=== PATIENT | female | born 1975 | race Hispanic/Latino ===

== ENCOUNTER 2017-12-09 18:21 | Emergency (ER) | payer OTHER ==
[2017-12-09 19:37] LABS: APPEARANCE,URINE Clear (CLEAR); BILIRUBIN,URINE Negative (NEGATIVE); COLOR,URINE Yellow (YELLOW); GLUCOSE, URINE (UA) Negative (NEGATIVE); KETONES,URINE Negative (NEGATIVE); LEUKOCYTE ESTERASE ,URINE Moderate (NEGATIVE); NITRATE,URINE Negative (NEGATIVE); OCCULT BLOOD,URINE Negative (NEGATIVE); PH,URINE 6.5 (5.0-8.0); PROTEIN,URINE Negative (NEGATIVE)
[2017-12-09 19:39] LABS: HCG,QUAL RESULT NEGATIVE (NEGATIVE)
[2017-12-09 19:52] LABS: BACTERIA,URINE Rare /HPF (None Seen); MUCUS,URINE Rare LPF (None Seen); RBC,URINE None Seen /HPF (0-1)
[2017-12-09] MEDS ORDERED: DEXAMETHASONE SOD PHOSPHATE 10MG/ML 1ML VIAL ONE (20:03)
[2017-12-09] MEDS ORDERED: ACETAMINOPHEN 325 MG TAB ONE (20:04)
== END 2017-12-09 20:50 | disposition home or self-care (01) ==
LOC: EDH 18:21
DX: J01.10 Acute frontal sinusitis, unspecified (principal); N39.0 Urinary tract infection, site not specified; Z88.8 Allergy status to other drugs, medicaments and biological substances
CPT/HCPCS: 81001; 81025; 96372; 99284; J1100

== ENCOUNTER 2018-09-08 22:30 | Emergency (ER) | payer OTHER ==
[2018-09-08] MEDS ORDERED: ORPHENADRINE CITRATE 30 MG/ML ML ONE (23:16)
[2018-09-08] MEDS ORDERED: LIDOCAINE 5% TOPICAL PATCH TP ONE (23:17)
[2018-09-08] MEDS ORDERED: KETOROLAC TROMETHAMINE 60 MG/2 ML VIAL ONE (23:17)
== END 2018-09-08 23:42 | disposition home or self-care (01) ==
LOC: EDH 22:30
DX: R51 Headache (principal); M62.830 Muscle spasm of back; M54.6 Pain in thoracic spine; M54.2 Cervicalgia; F41.9 Anxiety disorder, unspecified; Z88.6 Allergy status to analgesic agent; Z90.49 Acquired absence of other specified parts of digestive tract; Z88.8 Allergy status to other drugs, medicaments and biological substances
CPT/HCPCS: 96372 ×2; 99284; J1885; J2360

== ENCOUNTER 2019-10-24 10:43 | Emergency (ER) | payer OTHER ==
[2019-10-24] MEDS ORDERED: PREDNISONE 20 MG TABLET ONE (13:17)
[2019-10-24] MEDS ORDERED: KETOROLAC TROMETHAMINE 60 MG/2 ML VIAL ONE (13:18)
[2019-10-24] MEDS ORDERED: CYCLOBENZAPRINE HCL 10 MG TABLET ONE (13:18)
== END 2019-10-24 14:28 | disposition home or self-care (01) ==
LOC: EDH 10:43
DX: M54.32 Sciatica, left side (principal); R20.2 Paresthesia of skin; F41.9 Anxiety disorder, unspecified; Z88.8 Allergy status to other drugs, medicaments and biological substances; Z88.6 Allergy status to analgesic agent
CPT/HCPCS: 96372; 99283; J1885

== ENCOUNTER 2020-05-21 12:20 | Emergency (ER) | payer SELFPAY ==
[2020-05-21] MEDS ORDERED: HYDROCODONE/ACETAMINOPHEN 5/325 MG TAB ONE (13:03)
[2020-05-21] MEDS ORDERED: KETOROLAC 30MG VIAL (30MG/ML) ONE (13:03)
== END 2020-05-21 14:23 | disposition home or self-care (01) ==
LOC: EDH 12:20
DX: S83.91XA Sprain of unspecified site of right knee, initial encounter (principal); F41.9 Anxiety disorder, unspecified; F32.9 Major depressive disorder, single episode, unspecified; Z88.6 Allergy status to analgesic agent; Z88.8 Allergy status to other drugs, medicaments and biological substances; Z90.49 Acquired absence of other specified parts of digestive tract; X50.1XXA Overexertion from prolonged static or awkward postures, initial encounter; Y93.89 Activity, other specified; Y92.830 Public park as the place of occurrence of the external cause; Y99.8 Other external cause status
CPT/HCPCS: 29505; 73562; 96372; 99283; J1885

== ENCOUNTER 2021-11-11 00:16 | Emergency (ER) | payer OTHER ==
[~2021-11-11] VITALS: Ht 165.1 cm; Wt 86.2 kg
[2021-11-11 00:40] VITALS: BP 137/86
[2021-11-11 00:45] LABS: BASOPHILS % (AUTO) 0.8 % (0.0-5.0); EOSINOPHILS % (AUTO) 1.9 % (0.0-8.0); HEMATOCRIT 41.3 % (36-48); LYMPHOCYTES % (AUTO) 33.3 % (21.0-51.0); MEAN CORPUSCULAR HEMOGLOBIN 28.1 pg (27.0-33.0); MEAN CORPUSCULAR HGB CONC 33.7 g/dL (32.0-36.0); MEAN CORPUSCULAR VOLUME 83.6 fL (79-99); NEUTROPHILS % (AUTO) 55.9 % (40.0-77.0); PLATELET COUNT (AUTO) 337 K/uL (130-400); RED BLOOD CELL COUNT(AUTO) 4.94 MIL/uL (4.00-5.50); RED CELL DISTRIBUTION WIDTH 13.2 % (11.0-15.5); WHITE BLOOD COUNT (AUTO) 7.8 K/uL (4.8-10.8)
[2021-11-11 00:49] LABS: APPEARANCE,URINE CLEAR (CLEAR); BILIRUBIN,URINE NEGATIVE (NEGATIVE); COLOR,URINE COLORLESS (YELLOW); GLUCOSE, URINE (UA) NEGATIVE (NEGATIVE); KETONES,URINE NEGATIVE (NEGATIVE); LEUKOCYTE ESTERASE ,URINE 75 Leu/uL (NEGATIVE); NITRATE,URINE NEGATIVE (NEGATIVE); OCCULT BLOOD,URINE NEGATIVE (NEGATIVE); PROTEIN,URINE NEGATIVE (NEGATIVE); UROBILINOGEN,URINE 0.2 mg/dL (0.2-1.0)
[2021-11-11 00:52] LABS: CREATININE 0.8 mg/dL (0.5-1.5); POTASSIUM 3.9 mmol/L (3.5-5.1)
[2021-11-11 00:54] LABS: BACTERIA,URINE RARE /HPF (None Seen); MUCUS,URINE RARE LPF (None Seen); SQUAMOUS EPITHELIAL CELL,UR RARE /HPF (0-2)
[2021-11-11] MEDS ORDERED: 0.9%NACL 1000ML 1,000 ML IV ONE (01:00)
[2021-11-11] MEDS ORDERED: FAMOTIDINE 20MG VIAL IV ONE (01:00)
[2021-11-11] MEDS ORDERED: ONDANSETRON 4MG INJ IVP ONE (01:00)
[2021-11-11 01:01] LABS: ALBUMIN 4.4 g/dL (3.5-5.0); TOTAL PROTEIN, SERUM 8.6 g/dL (6.0-8.3)
[2021-11-11] MEDS ORDERED: FAMO-136 PO (02:34)
== END 2021-11-11 02:49 | disposition home or self-care (01) ==
LOC: EDH 00:16
DX: K21.00 Gastro-esophageal reflux disease with esophagitis, without bleeding (principal); R07.89 Other chest pain; Z88.5 Allergy status to narcotic agent; Z90.49 Acquired absence of other specified parts of digestive tract
CPT/HCPCS: 99284; 96374; 96361; 96375; 84484; 80053; 83690; 85025; 87088; 81001; 81025; 36415; 93005; J3490; J7030; J2405

== ENCOUNTER 2022-08-16 22:19 | Emergency (ER) | payer OTHER ==
[~2022-08-16] VITALS: Ht 165.1 cm; Wt 84.8 kg
[~2022-08-16 22:19] MED LIST: FAMO-136 PO
[2022-08-16 22:50] LABS: BASOPHILS % (AUTO) 0.5 % (0.0-5.0); EOSINOPHILS % (AUTO) 1.2 % (0.0-8.0); HEMATOCRIT 39.7 % (36-48); LYMPHOCYTES % (AUTO) 24.8 % (21.0-51.0); MEAN CORPUSCULAR HEMOGLOBIN 26.8 pg (27.0-33.0); MEAN CORPUSCULAR HGB CONC 32.7 g/dL (32.0-36.0); MEAN CORPUSCULAR VOLUME 81.9 fL (79-99); MONOCYTES % (AUTO) 6.1 % (3.0-13.0); NEUTROPHILS % (AUTO) 67.2 % (40.0-77.0); PLATELET COUNT (AUTO) 389 K/uL (130-400); RED BLOOD CELL COUNT(AUTO) 4.85 MIL/uL (4.00-5.50); RED CELL DISTRIBUTION WIDTH 13.3 % (11.0-15.5)
[2022-08-16 22:57] LABS: APPEARANCE,URINE CLEAR (CLEAR); BILIRUBIN,URINE NEGATIVE (NEGATIVE); COLOR,URINE LIGHT-YELLOW (YELLOW); GLUCOSE, URINE (UA) NEGATIVE (NEGATIVE); KETONES,URINE NEGATIVE (NEGATIVE); LEUKOCYTE ESTERASE ,URINE 500 Leu/uL (NEGATIVE); NITRATE,URINE NEGATIVE (NEGATIVE); OCCULT BLOOD,URINE NEGATIVE (NEGATIVE); PROTEIN,URINE NEGATIVE (NEGATIVE); UROBILINOGEN,URINE 0.2 mg/dL (0.2-1.0)
[2022-08-16 23:05] LABS: CREATININE 0.7 mg/dL (0.5-1.5); POTASSIUM 3.9 mmol/L (3.5-5.1)
[2022-08-16 23:06] LABS: BACTERIA,URINE RARE /HPF (None Seen); MUCUS,URINE RARE LPF (None Seen); SQUAMOUS EPITHELIAL CELL,UR RARE /HPF (0-2)
[2022-08-16 23:09] LABS: ALBUMIN 3.8 g/dL (3.5-5.0); MAGNESIUM 1.8 mg/dL (1.80-2.40); TOTAL PROTEIN, SERUM 7.7 g/dL (6.0-8.3)
[2022-08-17] MEDS ORDERED: CEPHALEXIN 500 MG CAPSULE PO ONE (02:30)
[2022-08-17] MEDS ORDERED: HYDROXYZINE 25 MG TABLET PO ONE (02:30)
[2022-08-17] MEDS ORDERED: CEPH500B PO (02:35)
[2022-08-17] MEDS ORDERED: HYDR50CA50 PO (02:35)
[2022-08-17 02:43] VITALS: BP 121/60
== END 2022-08-17 02:58 | disposition home or self-care (01) ==
LOC: EDH 22:19
DX: N39.0 Urinary tract infection, site not specified (principal); F41.9 Anxiety disorder, unspecified; M62.830 Muscle spasm of back; F32.A Depression, unspecified; Z90.49 Acquired absence of other specified parts of digestive tract; Z98.890 Other specified postprocedural states; Z88.5 Allergy status to narcotic agent; Z88.8 Allergy status to other drugs, medicaments and biological substances
CPT/HCPCS: 36415; 70450; 71045; 80053; 81001; 83605; 83735; 84484; 85025; 87088; 93005

== ENCOUNTER 2024-01-11 16:44 | Emergency (ER) | payer SELFPAY ==
[~2024-01-11 16:44] MED LIST changes: +CEPH500B PO; +HYDR50CA50 PO
--- NOTE | 2024-01-11 16:55 | EKG ---
[facility] Test Date: 2024-01-11 Test Time: 16:51:38 Pat Name: SIOBHAN GONZALEZ Department: ED Room: Gender: F Respiratory Services Manager: 08 : 1975 Requested By: AG LLANES Order Number: [id number] Reading MD: Christen Herring Measurements Intervals [place] Rate: 74 P: 6 LA: 127 QRS: 9 QRSD: 89 T: 33 QT: 365 QTc: 404 Interpretive Statements Sinus rhythm Compared to ECG 08/16/2022 22:25:30 Myocardial infarct finding no longer present Electronically Signed On 01-12-2024 17:25:20 VP SITE by Christen Herring Please click the below link to view image of tracing.
[2024-01-11 17:17] LABS: BASOPHILS # (AUTO) 0.06 K/uL (0.00-0.20); BASOPHILS % (AUTO) 0.6 % (0.0-5.0); EOSINOPHILS # (AUTO) 0.08 K/uL (0.00-0.70); EOSINOPHILS % (AUTO) 0.8 % (0.0-8.0); HEMATOCRIT 40.3 % (36-48); IMMATURE GRANULOCYTE ABSOLUTE 0.04 K/uL (0-1); LYMPHOCYTES # (AUTO) 2.7 K/uL (1.0-4.8); LYMPHOCYTES % (AUTO) 26.9 % (21.0-51.0); MEAN CORPUSCULAR HEMOGLOBIN 25.2 pg (27.0-33.0); MEAN CORPUSCULAR VOLUME 78.7 fL (79-99); MONOCYTES # (AUTO) 0.7 K/uL (0.1-1.0); NEUTROPHILS # (AUTO) 6.5 K/uL (1.8-7.7); NEUTROPHILS % (AUTO) 64.3 % (40.0-77.0); PLATELET COUNT (AUTO) 409 K/uL (130-400); RED BLOOD CELL COUNT(AUTO) 5.12 MIL/uL (4.00-5.50); RED CELL DISTRIBUTION WIDTH 14.6 % (11.0-15.5); WHITE BLOOD COUNT (AUTO) 10.1 K/uL (4.8-10.8)
--- NOTE | 2024-01-11 17:28 | HMCIMG ---
CHEST 1VW HISTORY: Chest pain COMPARISON: 08/17/2022 FINDINGS: A frontal projection of the chest was obtained. Prominent interstitial markings are seen with possible superimposed infiltrates. The heart is borderline enlarged. Degenerative changes are seen. No evidence of aortic calcification is seen. IMPRESSION: 1. Prominent interstitial markings are seen with possible superimposed infiltrates.
[2024-01-11 17:31] LABS: CREATININE 0.7 mg/dL (0.5-1.0); POTASSIUM 4.1 mmol/L (3.5-5.1)
[2024-01-11] MEDS: MAG/ALUM/SIMETH 30 ML UDCUP PO ONE (17:36)
[2024-01-11] MEDS: DICYCLOMINE HCL 10 MG/5 ML ML PO ONE (17:36)
[2024-01-11] MEDS: ASPIRIN 325MG TAB PO ONE (17:36)
[2024-01-11] MEDS: LIDOCAINE HCL 2% VISCOUS 15 ML UDCUP PO ONE (17:36)
[2024-01-11 17:45] LABS: B-TYPE NATRIURETIC PEPTIDE 17 pg/mL (0-100)
[2024-01-11] MEDS: ondanSETRON 4MG INJ IVP ONE (17:49)
[2024-01-11 18:28] LABS: ALANINE AMINOTRANSFERASE 30 U/L (12-78); ASPARTATE AMINOTRANSFERASE 13 U/L (10-37); BILIRUBIN,DIRECT < 0.1 mg/dL (0.0-0.3); BILIRUBIN,TOTAL 0.2 mg/dL (0.2-1.0); TOTAL PROTEIN, SERUM 8.2 g/dL (6.0-8.3)
--- NOTE | 2024-01-11 19:01 | ERN ---
ED Note History of Present Illness Stated Complaint: CHEST PAIN Chief Complaint: Chest Pain Time Seen by MD: 17:04 Time Seen by Midlevel: 17:04 Dictation: The patient is a 48-year-old female with a history of cholecystectomy, tubal ligation who presents to the emergency department with complaints of midsternal chest pain onset yesterday. Patient reports pain sensation as burning associated with nausea. Reports pain to be constant. Denies any fevers, vomiting diarrhea. Allergies: Coded Allergies: morphine (Unverified Allergy, Unknown, 09/08/18) rabeprazole (Unverified Allergy, Unknown, 09/08/18) Home Meds Active Scripts Cephalexin Monohydrate (Keflex) 500 Mg Cap, 500 MG PO QID for 7 Days, #28 CAP Prov:SO KRAMER Sr., MD 08/17/22 Hydroxyzine Pamoate (Hydroxyzine Pamoate) 50 Mg Capsule, 50 MG PO QIDP PRN for ANXIETY/AGITATION, #30 CAP 2 Refills Prov:SO KRAMER Sr., MD 08/17/22 Famotidine (Pepcid) 20 Mg Tablet, 20 MG PO DAILY, #30 TAB 0 Refills Prov:TONI JOEL MD 11/11/21 Past Medical History Past Medical History: Anxiety, Depression Surgical History: Cholecystectomy, Other, BTL Surgical History Other: EYE SX Social History: Other RN Note Reviewed/Agreed w/PFSH: Yes Review of System Dictation Constitutional: Negative for fever,chills, and weight loss Eyes: Negative for injury, pain,redness, and discharge ENT: Negative for injury,pain or swelling Cardiovascular: Negative for palpitations, and edema positive for chest pain Respiratory: Negative for shortness of breath, cough, and wheezing, Abdomen/GI: Negative for abdominal pain, nausea, vomiting, diarrhea, and constipation Back: Negative for injury and pain : Negative for injury, bleeding and discharge MS/Extremity: Negative for injury and deformity Skin: Negative for rash, and discoloration Neuro: Negative for headache, weakness, numbness, tingling, and seizure Psych: Negative for suicide ideation, homicidal ideation, and hallucinations Initial Vital Sign VS Vital Signs Date Time Temp Pulse Resp B/P (MAP) Pulse Ox O2 Delivery O2 Flow Rate FiO2 01/11/24 20:30 97.9 61 18 140/95 100 Room Air* 0 21 Physical Exam Dictation Vital Signs reviewed General Appearance: Alert, oriented x 3, no acute distress, well developed, nourished. Head and Face: non-traumatic. Eyes: PERRL, pink conjunctivas, eyelid no trauma, anterior chamber with arcus senilis. Ears: Pinnas intact and no signs of trauma or erythema ear canals clear and no discharge TM no erythema Nose: No discharge, no bleeding. Oropharynx: Mouth normal, tongue pink. pharynx clear,no erythema, tonsils no exudates, no abscesses noted, mucous membrane moist Neck: Supple, non-tender, no thyromegaly, no masses, no JVD, no bruits Breast:Deferred Chest:No tenderness, no crepitus, no paradoxical movement, no retractions Lungs:Clear, well-ventilated, symmetric, no rales, no wheezing, no rhonchi, no stridor, good breath sounds bilaterally Heart: Regular rate, regular rhythm, no murmur, no gallops Vascular: no peripheral edema, Abdomen: Soft, positive bowel sounds, nondistended, no guarding, nontender, no rebound, no masses no hepatomegaly, no splenomegaly, no Leblanc's sign, no hernias. Rectal: Deferred Genital: Deferred Neurological: Normal speech, motor function intact, sensory function intact Musculoskeletal: Neck nontender, full range of motion, back nontender, full range of motion, Extremities: nontender, full range of motion Skin: Color pink, dry, no turgor, no rash, no lacerations, no abrasions, no contusions. Lymphatic: Deferred Results (Laboratory/Radiology) Laboratory/Radiology Laboratory Tests Test 01/11/24 17:00 01/11/24 17:24 01/11/24 17:25 01/11/24 18:33 White Blood Count 10.1 K/uL (4.8-10.8) Red Blood Count 5.12 MIL/uL (4.00-5.50) Hemoglobin 12.9 g/dL (12.0-16.0) Hematocrit 40.3 % (36-48) Mean Corpuscular Volume 78.7 fL (79-99) L Mean Corpuscular Hemoglobin 25.2 pg (27.0-33.0) L Mean Corpuscular Hemoglobin Concent 32.0 g/dL (32.0-36.0) Red Cell Distribution Width 14.6 % (11.0-15.5) Platelet Count 409 K/uL (130-400) H Mean Platelet Volume 9.5 fL (7.5-10.5) Immature Granulocyte % (Auto) 0.4 % (0-1) Neutrophils (%) (Auto) 64.3 % (40.0-77.0) Lymphocytes (%) (Auto) 26.9 % (21.0-51.0) Monocytes (%) (Auto) 7.0 % (3.0-13.0) Eosinophils (%) (Auto) 0.8 % (0.0-8.0) Basophils (%) (Auto) 0.6 % (0.0-5.0) Neutrophils # (Auto) 6.5 K/uL (1.8-7.7) Lymphocytes # (Auto) 2.7 K/uL (1.0-4.8) Monocytes # (Auto) 0.7 K/uL (0.1-1.0) Eosinophils # (Auto) 0.08 K/uL (0.00-0.70) Basophils # (Auto) 0.06 K/uL (0.00-0.20) Absolute Immature Granulocyte (auto 0.04 K/uL (0-1) Nucleated Red Blood Cells 0.0 % (0.0-0.19) Sodium Level 135 mmol/L (136-145) L Potassium Level 4.1 mmol/L (3.5-5.1) Chloride Level 99 mmol/L (101-111) L Carbon Dioxide Level 29 mmol/L (21-32) Blood Urea Nitrogen 13 mg/dL (7-18) Creatinine 0.7 mg/dL (0.5-1.0) Glomerular Filtration Rate Calc 107 mL/min (>90) Random Glucose 98 mg/dL (70-105) Total Calcium 10.1 mg/dL (8.5-10.1) Total Creatine Kinase 57 U/L (21-232) B-Type Natriuretic Peptide 17 pg/mL (0-100) Total Bilirubin 0.2 mg/dL (0.2-1.0) Direct Bilirubin < 0.1 mg/dL (0.0-0.3) Aspartate Amino Transf (AST/SGOT) 13 U/L (10-37) Alanine Aminotransferase (ALT/SGPT) 30 U/L (12-78) Alkaline Phosphatase 98 U/L (50-136) Total Protein 8.2 g/dL (6.0-8.3) Albumin 4.0 g/dL (3.5-5.0) Lipase 45 U/L (16-77) Troponin I < 0.05 ng/mL (0.00-0.05) Troponin I High Sensitivity < 4 ng/L (4-50) L REASON: CHEST PAIN ORDERING PHYSICIAN: AG LLANES DO PROCEDURE: CXR1VW - CHEST 1VW CHEST 1VW HISTORY: Chest pain COMPARISON: 08/17/2022 FINDINGS: A frontal projection of the chest was obtained. Prominent interstitial markings are seen with possible superimposed infiltrates. The heart is borderline enlarged. Degenerative changes are seen. No evidence of aortic calcification is seen. IMPRESSION: 1. Prominent interstitial markings are seen with possible superimposed infiltrates. Labs Reviewed?: Yes EKG: (+) rhythm (Sinus rhythm) EKG Comment: EKG 01/11/2024 1651 ventricular rate 74, regular rate and rhythm, normal sinus rhythm, no STEMI. ED Course ED Course Orders Procedure Category Date Status Time Vital Signs Per CPOE 01/11/24 Transmitted Routine 16:47 B-Type Natriuretic LAB 01/11/24 Complete Peptide 16:47 Chest 1vw RAD 01/11/24 Resulted 16:47 12 Lead Ekg Tracing- EKG 01/11/24 Complete Technical 16:47 Oxygen By Nc/Pulse Ox CPOE 01/11/24 Transmitted 16:47 Maintain Iv CPOE 01/11/24 Transmitted 16:47 Iv Insertion CPOE 01/11/24 Transmitted 16:47 Cardiac Monitoring CPOE 01/11/24 Transmitted 16:47 Pulse Oximetry With CPOE 01/11/24 Transmitted Vs And Prn 16:47 Cbc With Differential LAB 01/11/24 Complete 16:47 Activity: Br W/Brp CPOE 01/11/24 Transmitted With Assist 16:47 Creatine Kinase, Total LAB 01/11/24 Complete 16:47 Troponin Poc Order LAB 01/11/24 Complete Only 16:47 Bedside Troponin-I LAB.ER 01/11/24 Complete (Poc) 16:47 Basic Metabolic Panel LAB 01/11/24 Complete 16:47 12 Lead Ekg Tracing- EKG 01/11/24 Logged Technical 16:48 Hepatic Function Panel LAB 01/11/24 Complete 17:24 Lipase LAB 01/11/24 Complete 17:24 Ondansetron 4mg Inj PHA 01/11/24 Complete (Zofran 4mg Inj) 17:30 Lidocaine Hcl 2% PHA 01/11/24 Complete Viscous (Lidocaine Hcl 17:30 Mag/Alum/Simeth 30ml PHA 01/11/24 Complete (Maalox Plus 30ml) 17:30 Dicyclomine Hcl PHA 01/11/24 Complete (Bentyl 10mg/5ml 17:30 Aspirin 325mg Tab PHA 01/11/24 Complete (Aspirin 325mg Tab) 17:30 Troponin I High LAB 01/11/24 Complete Sensitivity 18:06 Current Medications Medications (Trade) Dose Ordered Sig/Soniya Route PRN Reason Start Time Stop Time Status Last Admin Dose Admin Al Hydroxide/Mg Hydroxide (MAALox PLUS 30ML) 30 ml ONCE ONCE PO 01/11/24 17:30 01/11/24 17:31 DC 01/11/24 17:36 Aspirin (Aspirin 325mg Tab) 325 mg ONCE ONCE PO 01/11/24 17:30 01/11/24 17:31 DC 01/11/24 17:36 Dicyclomine HCl (Bentyl 10mg/5ml Syrup) 10 mg ONCE ONCE PO 01/11/24 17:30 01/11/24 17:31 DC 01/11/24 17:36 Lidocaine HCl (Lidocaine HCl 2% Viscous) 10 ml ONCE ONCE PO 01/11/24 17:30 01/11/24 17:31 DC 01/11/24 17:36 Ondansetron HCl (zoFRAN 4MG INJ) 4 mg ONCE ONCE IVP 01/11/24 17:30 01/11/24 17:31 DC 01/11/24 17:49 Vital Signs Date Time Temp Pulse Resp B/P (MAP) Pulse Ox O2 Delivery O2 Flow Rate FiO2 01/11/24 20:30 97.9 61 18 140/95 100 Room Air* 0 21 HEART Score Response (Comments) Value History: Low suspicion (0) 0 EKG: Normal 0 Age: 45-65yrs (+1) 1 Risk Factors: No known risk factors (0) 0 Initial Troponin: Normal limit (0) 0 Total 1 Medical Decision Making MDM The patient is a 48-year-old female with a history of cholecystectomy, tubal ligation who presents to the emergency department with complaints of midsternal chest pain onset yesterday. Patient reports pain sensation as burning associated with nausea. Reports pain to be constant. Denies any fevers, vomiting diarrhea. CBC showed no leukocytosis, no anemia, chemistry showed mild hyponatremia, normal renal function, negative troponin x2, normal lipase, normal liver function. EKG sinus rhythm. X-ray with prominent markings. Patient continues in no distress. Low risk for cardiac etiology. Will be discharged to follow up with PCP. Differential diagnosis: ACS, gastritis, pneumonia, pneumothorax, costochondritis Need for hospitalization: Patient does not meet criteria for hospitalization. There are no social concerns with this patient. DX & DISP Disposition: Discharge Departure Impression: Primary Impression: Gastritis Additional Impressions: Chest pain with low risk for cardiac etiology, Hyponatremia, Hypochloremia Condition: Stable Additional Instructions: FOLLOW-UP WITH PRIMARY CARE PROVIDER IN 1 TO 2 DAYS. TAKE MEDICATIONS DIRECTED HERE IN THE EMERGENCY ROOM. OKAY TO CONTINUE HOME MEDICATIONS UNLESS OTHERWISE DISCUSSED DURING YOUR VISIT IN THE EMERGENCY ROOM TODAY. RETURN TO YOUR NEAREST EMERGENCY ROOM IF SYMPTOMS WORSEN OR IF THERE IS NO IMPROVEMENT. CALL 911 IF YOU NEED IMMEDIATE ASSISTANCE. TAKE TYLENOL OR MOTRIN [id number] NEEDED AND IF NO CONTRAINDICATIONS ARE PRESENT. INCREASE ORAL HYDRATION. A WOUND CULTURE OR URINE CULTURE WAS ORDERED HERE IN THE EMERGENCY ROOM DEPARTMENT PLEASE FOLLOW-UP WITH PRIMARY CARE PROVIDER AND ADVISE THEM TO GET REPEAT PORTS FROM OUR FACILITY. IF YOU HAD ANY JAHAIRA WRAP/SPLINTS CHRISTINA T WERE APPLIED HERE, PLEASE DO NOT REMOVE THEM UNTIL YOU SEE YOUR PRIMARY CARE OR SPECIALTY. Referrals: HENRRY GIRON (PCP) Time of Disposition: 20:55 I have reviewed the case, and I agree with, Diagnosis and Plan ATTESTATION BY PHYSICIAN I PERFORMED THE SUBSTANTIVE PORTION OF THE VISIT. I HAVE REVIEWED AND PERSONALLY MADE AND APPROVED THE MANAGEMENT PLAN THAT IS DOCUMENTED IN THE NOTE BY MYSELF FOR THE A PP. I ACKNOWLEDGED FOR RESPONSIBILITY FOR THE PATIENT'S MANAGEMENT PLAN. PANCHO MEHTA Jan 11, 2024 19:01 SOO ASH MD Jan 12, 2024 05:00
[2024-01-11 20:30] VITALS: BP 140/95; PULSE 61; RESP 18; TEMP 97.8; O2SAT 100
== END 2024-01-11 21:14 | disposition home or self-care (01) ==
LOC: EDH 16:44
DX: K29.70 Gastritis, unspecified, without bleeding (principal); R07.89 Other chest pain; E87.1 Hypo-osmolality and hyponatremia; E87.8 Other disorders of electrolyte and fluid balance, not elsewhere classified; F41.9 Anxiety disorder, unspecified; F32.A Depression, unspecified; Z88.5 Allergy status to narcotic agent; Z90.49 Acquired absence of other specified parts of digestive tract; Z98.51 Tubal ligation status; Z79.899 Other long term (current) drug therapy; Z98.890 Other specified postprocedural states
CPT/HCPCS: 99285; 96374; 71045; 82550; 80076; 84484 ×2; 80048; 83880; 83690; 85025; 36415; 93005; J2405